=== PATIENT | female | born 1995 | race Caucasian/White ===

== ENCOUNTER 2017-07-15 13:55 | Emergency (ER) | payer OTHER ==
[~2017-07-15] VITALS: Ht 157.5 cm; Wt 73.8 kg
[~2017-07-15 13:55] MED LIST: AMOXICILLIN500 MG; CIPRO500 MG PO; CLEOCIN300 MG PO; CYCLOBENZAPRINE 10 M; DOXYCYCLINE HY100 MG PO; IBUPROFEN600 MG; KEFLEX500 MG PO; LEVAQUIN500 MG PO; MEDROXYPRO150 MG/1 M; MOTRIN600 MG PO; MOTRIN800 MG PO; NAPROSYN500 MG PO; NO MEDS; PROVERA,CYCRIN5 MG PO; PROZAC20 MG PO; TRAMADOL HCL50 MG PO; VICODIN,LORT1 TABLET PO; ZOFRAN4 MG PO
[2017-07-15 14:32] LABS: HEMATOCRIT 42.2 % (36.0-46.0); MCH 30.9 PG (29.0-34.0); MCHC 33.4 G/DL (30.0-36.0); MCV 92.3 FL (83-99); MEAN PLAT.VOLUME 10.3 uM^3 (9.5-12.4); PLATELET COUNT 347 K/uL (156-360); RBC DIS.WIDTH-CV 12.5 % (11.8-14.6); RBC DIS.WIDTH-SD 42.1 % (39-53); RED BLOOD COUNT 4.57 M/uL (3.80-5.20); WHITE BLOOD COUNT 7.4 K/uL (4.1-10.2)
[2017-07-15 14:40] LABS: CHLORIDE 107 mEq/L (99-109); POTASSIUM 3.7 mEq/L (3.7-5.4); SODIUM 143 mEq/L (136-147)
[2017-07-15 14:42] LABS: GLUCOSE 96 mg/dL (70-99)
[2017-07-15 14:43] LABS: ANION GAP 13 MEQ/L (2-14)
[2017-07-15 14:44] LABS: TOTAL BILIRUBIN 0.5 mg/dL (0.0-1.0)
[2017-07-15 14:45] LABS: SERUM ETHYL ALCOHOL 99 mg/dL
[2017-07-15 14:46] LABS: ALKALINE PHOSPHATASE 68 IU/L (3-129); GFR ESTIMATE (CALCULATED) > 59 mL/min/
[2017-07-15 14:47] LABS: UREA NITROGEN (BUN) 8 mg/dL (9-23)
[2017-07-15 14:59] LABS: ADD MIUA? YES; BILIRUBIN NEGATIVE; BLOOD MODERATE; COLOR YELLOW ((YELLOW)); GLUCOSE (STRIP) NEGATIVE; KETONES NEGATIVE; LEUKOCYTES NEGATIVE; NITRITE NEGATIVE; PROTEIN (STRIP) NEGATIVE; SPECIFIC GRAVITY 1.017 (1.000-1.030); UROBILINOGEN 0.2 MG/DL (0.2-1.0)
[2017-07-15 15:02] LABS: BACTERIA RARE /HPF; CALCIUM OXALATE CRYSTALS 1+ /HPF; EPITHELIAL CELLS RARE /HPF; MUCUS TRACE /LPF; RED BLOOD CELLS 0-5 /HPF (0-5); WHITE BLOOD CELLS 0-5 /HPF (0-5)
[2017-07-15 15:10] LABS: AMPHETAMINE NEGATIVE (500 ng/mL); BARBITURATES NEGATIVE (200 ng/mL); BENZODIAZEPINES NEGATIVE (150 ng/mL); COCAINE NEGATIVE (150 ng/mL); INTERNAL CONTROLS VALID? YES; METHADONE NEGATIVE (200 ng/mL); METHAMPHETAMINE NEGATIVE (500 ng/mL); OPIATES (MORPHINE) NEGATIVE (100 ng/mL); OXYCODONE NEGATIVE (100 ng/mL); PHENCYCLIDINE NEGATIVE (25 ng/mL); PROPOXYPHENE NEGATIVE (300 ng/mL); THC CANNABINOIDS NEGATIVE (50 ng/mL); TRICYCLIC ANTIDEPRESSANTS NEGATIVE (300 ng/mL)
[2017-07-15 17:27] VITALS: BP 138/89
== END 2017-07-15 17:29 | disposition home or self-care (01) ==
LOC: EME 13:55
PROVIDERS: Emergency Medicine
DX: F10.129 Alcohol abuse with intoxication, unspecified (principal); F32.9 Major depressive disorder, single episode, unspecified; Y90.4 Blood alcohol level of 80-99 mg/100 ml; F41.9 Anxiety disorder, unspecified; F17.200 Nicotine dependence, unspecified, uncomplicated
CPT/HCPCS: 80053; 81003; 85027; 90839; 99281; 99284; G0480

== ENCOUNTER 2017-10-12 11:13 | Emergency (ER) | payer OTHER ==
[~2017-10-12] VITALS: Ht 157.5 cm; Wt 74.9 kg
[2017-10-12] MEDS ORDERED: MOTRIN600 MG PO (14:29)
[2017-10-12 15:00] VITALS: BP 110/62
== END 2017-10-12 15:01 | disposition home or self-care (01) ==
LOC: EME 11:13
DX: T76.11XA Adult physical abuse, suspected, initial encounter (principal); S06.0X0A Concussion without loss of consciousness, initial encounter; Y04.0XXA Assault by unarmed brawl or fight, initial encounter; Z88.2 Allergy status to sulfonamides
CPT/HCPCS: 70450; 90832; 99281; 99284

== ENCOUNTER 2018-04-29 01:29 | Emergency (ER) | payer OTHER ==
[~2018-04-29] VITALS: Ht 157.5 cm; Wt 74.8 kg
[2018-04-29 02:13] LABS: HEMATOCRIT 39.1 % (36.0-46.0); HEMOGLOBIN 13.5 G/DL (11.9-15.5); MCH 31.5 PG (29.0-34.0); MCHC 34.5 G/DL (30.0-36.0); MCV 91.1 FL (83-99); PLATELET COUNT 312 K/uL (156-360); RBC DIS.WIDTH-CV 12.3 % (11.8-14.6); RBC DIS.WIDTH-SD 40.6 % (39-53); RED BLOOD COUNT 4.29 M/uL (3.80-5.20)
[2018-04-29 02:29] LABS: CHLORIDE 105 mEq/L (99-109); POTASSIUM 3.7 mEq/L (3.7-5.4); SODIUM 138 mEq/L (136-147)
[2018-04-29 02:31] LABS: GLUCOSE 111 mg/dL (70-99)
[2018-04-29 02:35] LABS: CREATININE 0.8 mg/dL (0.6-1.3); GFR ESTIMATE (CALCULATED) > 59 mL/min/
[2018-04-29 02:36] LABS: UREA NITROGEN (BUN) 12 mg/dL (9-23)
[2018-04-29 02:44] LABS: QUANTITATIVE HCG < 4.0 MIU/ML; TROP-I INTERPRETATION NEGATIVE; TROPONIN-I < 0.01 ng/mL (0.0-0.30)
[2018-04-29] MEDS ORDERED: ATARAX,VISTARIL25 MG PO (03:03)
[2018-04-29 03:12] VITALS: BP 103/72
== END 2018-04-29 03:18 | disposition home or self-care (01) ==
LOC: EME 01:29
PROVIDERS: Emergency Medicine
DX: F41.9 Anxiety disorder, unspecified (principal); R06.00 Dyspnea, unspecified; F32.9 Major depressive disorder, single episode, unspecified; F17.200 Nicotine dependence, unspecified, uncomplicated; Z86.69 Personal history of other diseases of the nervous system and sense organs; Z88.2 Allergy status to sulfonamides
CPT/HCPCS: 71046; 80048; 84484; 84702; 85027; 93005; 99281; 99284